=== PATIENT | male | born 1995 | race Caucasian/White ===

== ENCOUNTER 2018-05-06 23:10 | Emergency (ER) | payer BC ==
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
[2018-05-06 23:49] VITALS: BP 136/81
== END 2018-05-06 23:48 | disposition home or self-care (01) ==
LOC: ED 23:10
DX: S02.2XXA Fracture of nasal bones, initial encounter for closed fracture (principal); Y04.2XXA Assault by strike against or bumped into by another person, initial encounter; Y92.9 Unspecified place or not applicable
CPT/HCPCS: 99281